=== PATIENT | male | born 1995 | race Caucasian/White ===

== ENCOUNTER 2016-08-03 21:34 | Emergency (ER) | payer OTHER ==
[~2016-08-03] VITALS: Ht 182.9 cm; Wt 97.5 kg
[2016-08-03 22:10] VITALS: BP 151/96
--- NOTE | 2016-08-03 22:25 | PHYS DOC ---
Past Medical History Past Medical History: No Pertinent History Past Surgical History: Appendectomy, Tonsillectomy Alcohol Use: None Drug Use: None Adult General Chief Complaint Chief Complaint: LACERATION/AVULSION HPI HPI Patient is a 20 year old male presents to the emergency department with a history of laceration to left heel. Patient states he was rolling a smoker down a hill when it was caught on his heel. He is unsure when his last tetanus immunization occurred. Bleeding in currently controlled. He is able to flex and point his foot with no increase pain or discomfort. Review of Systems Review of Systems Constitutional: Denies fever or chills [] Eyes: Denies change in visual acuity, redness, or eye pain [] HENT: Denies nasal congestion or sore throat [] Respiratory: Denies cough or shortness of breath [] Cardiovascular: No additional information not addressed in HPI [] GI: Denies abdominal pain, nausea, vomiting, bloody stools or diarrhea [] : Denies dysuria or hematuria [] Musculoskeletal: Denies back pain or joint pain [] Integument: Denies rash or skin lesions Laceration to the right heel Neurologic: Denies headache, focal weakness or sensory changes [] Endocrine: Denies polyuria or polydipsia [] Current Medications Current Medications Current Medications Medications (Trade) Dose Ordered Sig/Tess Start Time Stop Time Status Last Admin Dose Admin Diphtheria/ Tetanus/Acell Pertussis (Boostrix) 0.5 ml ONCE ONCE 08/03/16 23:00 08/03/16 23:01 DC 08/03/16 22:40 0.5 ML Lidocaine/Sodium Bicarbonate (Buffered Lidocaine 1%) 20 ml 1X ONCE 08/03/16 22:45 08/03/16 22:46 DC 08/03/16 22:40 20 ML Allergies Allergies Allergies Coded Allergies Type Severity Reaction Last Updated Verified Sulfa (Sulfonamide Antibiotics) Allergy Severe swelling 08/03/16 Yes Physical Exam Physical Exam Constitutional: Well developed, well nourished, no acute distress, non-toxic appearance. [] HENT: Normocephalic, atraumatic, bilateral external ears normal, oropharynx moist, no oral exudates, nose normal. [] Eyes: PERRLA, EOMI, conjunctiva normal, no discharge. [] Neck: Normal range of motion, no tenderness, supple, no stridor. [] Cardiovascular:Heart rate regular rhythm, no murmur [] Lungs & Thorax: Bilateral breath sounds clear to auscultation [] Skin: Warm, dry, no erythema, no rash. Laceration to left heel approximate length 4 cm Back: No tenderness Extremities: No tenderness, no cyanosis, no clubbing, ROM intact, no edema. Patient was able to flex and point the foot with no difficulty. Patient was noted to have flexion of the foot upon squeezing the calf muscle. Neurologic: Alert and oriented X 3, normal motor function, normal sensory function, no focal deficits noted. [] Psychologic: Affect normal, judgement normal, mood normal. [] Current Patient Data Vital Signs Vital Signs Date Time Temp Pulse Resp B/P (MAP) Pulse Ox O2 Delivery O2 Flow Rate FiO2 08/03/16 22:10 98.3 86 20 96 Room Air 98.3 EKG EKG [] Radiology/Procedures Radiology/Procedures [] Course & Med Decision Making Course & Med Decision Making Pertinent Labs and Imaging studies reviewed. (See chart for details) Laceration was sutured with 9 interrupted sutures. Patient was provided with discharge instructions and treatment regimens. He was provided with signs and symptoms of infection: Redness, warmth, tenderness or any yellow/greenish drainage of a come from the site. He was also instructed to keep it clean and dry and clean the site twice day with soap and water and apply antibiotic ointment to the area. Patient was instructed to have the sutures out in the next 7-10 days. Tylenol or ibuprofen for pain and discomfort. Ice packs on 20 minutes off 20 minutes several times a day elevation as much as possible. Patient will be discharged home in stable condition signs and symptoms to return back to emergency department as been provided. [] Dragon Disclaimer Dragon Disclaimer This electronic medical record was generated, in whole or in part, using a voice recognition dictation system. Departure Departure Impression: Primary Impression: Laceration Disposition: 01 HOME, SELF-CARE Condition: STABLE Referrals: JESSICA BRADFORD MD (PCP) Patient Instructions: Laceration Care, Adult, [id number] Additional Instructions: Keep the laceration clean and dry. Clean the site twice a day with soap and water and apply antibiotic ointment to the area. Watch for signs and symptoms of infection: Redness, warmth, tenderness or any yellow/greenish transient become from the site. If this should occur you need follow-up to primary care physician immediately. Tylenol or ibuprofen for pain and discomfort. Ice packs on 20 minutes off 20 minutes several times a day. Elevation as much as possible. Follow-up in 7-10 days to have the 9 sutures removed from her heel area. Return to the emergency department sign symptoms of become worse. Laceration/Wound Repair Laceration/Wound Repair : Wound Location: lower extremity Wound's Depth, Shape: superficial Wound Length (cm): 4 Wound Explored: clean Betadine Prep?: Yes Anesthesia: 1% Lidocaine Volume Anesthetic (ccs): 4 Wound Debrided: minimal Wound Repaired With: sutures Suture Size/Type: 4:0, nylon Number of Sutures: 9 Progress Patient tolerated the procedure without difficulty, JI HIRSCH APRN August 03, 2016 22:25
[2016-08-03] MEDS ORDERED: LIDOCAINE 1% / SOD BICARB 8.4% 20 ML VIAL. IJ ONE (22:45)
[2016-08-03] MEDS ORDERED: DIPHTH,PERTUSS(ACELL),TET TOX 0.5 ML DISP.SYRIN. VAX IM ONE (23:00)
== END 2016-08-03 23:53 | disposition home or self-care (01) ==
LOC: ER 21:34
DX: S91.311A Laceration without foreign body, right foot, initial encounter (principal); Z88.2 Allergy status to sulfonamides; W45.8XXA Other foreign body or object entering through skin, initial encounter; W29.8XXA Contact with other powered hand tools and household machinery, initial encounter; Y93.89 Activity, other specified; Y92.89 Other specified places as the place of occurrence of the external cause; Y99.8 Other external cause status
CPT/HCPCS: 12002; 90471; 90715; 99283-25